=== PATIENT | female | born 1940 | race African-American/Black ===

== ENCOUNTER 2016-12-08 09:14 | Emergency (ER) | payer MEDICARE, BC ==
[~2016-12-08] VITALS: Ht 137.2 cm; Wt 77.0 kg
[~2016-12-08 09:14] MED LIST: AMLO5TAB4 PO; ATOR10TA PO; CARI350T PO; CHOL100026 PO; COR25 PO; DOCU100T9 PO; HYDR-519 PO; IBUP-1510 PO; LEVO100T9 PO; TIMO15DR12 EACHEYE; albuterol; mvi PO
[2016-12-08 17:58] VITALS: BP 135/79
== END 2016-12-08 11:23 | disposition home or self-care (01) ==
LOC: ER 09:50
DX: R05 Cough (principal); I10 Essential (primary) hypertension; E78.00 Pure hypercholesterolemia, unspecified; K21.9 Gastro-esophageal reflux disease without esophagitis
CPT/HCPCS: 71010; 99283

== ENCOUNTER 2018-04-21 15:54 | Inpatient (IN) | payer MEDICARE, BC ==
[~2018-04-21] VITALS: Ht 152.4 cm; Wt 73.9 kg
[~2018-04-21 15:54] MED LIST changes: +ALBU4TAB6 NEB; +ASPI-986 PO; -CARI350T PO; -CHOL100026 PO; +CHOL100044 PO; +DOCU-150 MT; +FERR325T6 MT; +HYDR-4135 MT; -IBUP-1510 PO; +IBUP-2030 PO; +LEVO112T7 MT; +LOSA100T3 PO; +S350 PO; +TIMO5DRO32 EACHEYE; -albuterol; +albuterol INH
[2018-04-21] MEDS ORDERED: ACETAMINOPHEN 650MG/20.3ML UDC PO ONE (16:45)
[2018-04-21] MEDS ORDERED: ALBUTEROL (0.083%) 2.5MG/3ML NEB HHN STA (16:45)
[2018-04-21 17:21] LABS: BASOPHILS % 0.4 % (0.0-2.0); HEMATOCRIT. 31.4 % (36.0-48.0); HEMOGLOBIN. 10.2 g/dL (12.0-16.0); LYMPHOCYTES % 15.8 % (20.0-50.0); MEAN CORPUSCULAR HEMOGLOBIN 28.8 pg (28.0-32.0); MEAN CORPUSCULAR VOLUME 88.5 fL (81.0-99.0); MEAN PLATELET VOLUME 7.8 fl (7.4-10.4); MONOCYTES % 5.6 % (2.0-8.0); NEUTROPHILS % 77.2 % (40.0-76.0); PLATELET 201 x1000/uL (130-400); RED BLOOD CELL COUNT 3.55 mill/uL (4.2-5.4); RED CELL DISTRIBUTION WIDTH 15.3 % (11.6-14.6)
[2018-04-21 17:26] LABS: CHLORIDE 106 mEq/L (98-107)
[2018-04-21 18:35] LABS: CLARITY URINE CLOUDY (CLEAR); COLOR URINE YELLOW (YELLOW); KETONES URINE NEGATIVE (NEGATIVE); LEUKOCYTE ESTERASE URINE 1+ (NEGATIVE); NITRITE URINE NEGATIVE (NEGATIVE); OCCULT BLOOD URINE NEGATIVE (NEGATIVE); PROTEIN URINE NEGATIVE (NEGATIVE); SPECIFIC GRAVITY URINE 1.017 (1.005-1.030); UROBILINOGEN URINE 0.2 E.U./dL (0.2-1.0)
[2018-04-21] MEDS ORDERED: SODIUM CHLORIDE 0.9% 1,000 ML IV ONE (20:22)
[2018-04-21] MEDS ORDERED: CEFTRIAXONE 1 G PREMIX 50 ML IV ONE (20:30)
[2018-04-21] MEDS ORDERED: AZITHROMYCIN 500 MG in DEXT 5% WATER 250 ML IV ONE (20:30)
[2018-04-21] MEDS ORDERED: ACETAMINOPHEN 325MG TABLET PO PRN (23:15)
[2018-04-21] MEDS ORDERED: GUAIFENESIN 200MG/10ML SUGAR FREE UDC PO PRN (23:15)
[2018-04-21] MEDS ORDERED: METHYLPREDNISOLONE SOD SUCC 125 MG/2 ML VIAL IV SCH (23:15)
[2018-04-21] MEDS ORDERED: MAGNESIUM/ALUMINUM HYDROXIDE/SIMETHICONE 30ML UDC PO PRN (23:15)
[2018-04-21] MEDS ORDERED: ONDANSETRON HCL 4MG/2ML INJ IV PRN (23:15)
[2018-04-21] MEDS ORDERED: HYDROCODONE/ACETAMINOPHEN 5/325MG TABLET PO PRN (23:15)
[2018-04-21] MEDS ORDERED: CLONIDINE 0.1MG TABLET PO PRN (23:15)
[2018-04-21] MEDS ORDERED: IPRATROPIUM/ALBUTEROL 0.5-3(2.5)MG/3ML NEB INH PRN (23:15)
[2018-04-21] MEDS ORDERED: DOCUSATE SODIUM 100MG CAPSULE PO PRN (23:15)
[2018-04-21] MEDS ORDERED: HYDROCODONE/ACETAMINOPHEN 10/325MG TABLET PO PRN (23:15)
[2018-04-21] MEDS ORDERED: DIPHENHYDRAMINE 50MG/ML VIAL IV PRN (23:15)
[2018-04-22] VITALS (7 sets, daily range): BP systolic 124–148; BP diastolic 60–75
[2018-04-22] MEDS ORDERED: TRAM150C25 PO (00:39)
[2018-04-22] MEDS ORDERED: BIMA2.5D4 EACHEYE (00:39)
[2018-04-22] MEDS ORDERED: METHYLPREDNISOLONE SOD SUCC 125 MG/2 ML VIAL IV SCH (01:45)
[2018-04-22 07:09] LABS: BASOPHILS % 0.2 % (0.0-2.0); EOSINOPHILS % 0.2 % (0.0-5.0); HEMATOCRIT. 30.2 % (36.0-48.0); LYMPHOCYTES % 10.8 % (20.0-50.0); MEAN CORPUSCULAR HEMOGLOBIN 29.3 pg (28.0-32.0); MEAN CORPUSCULAR VOLUME 88.6 fL (81.0-99.0); MEAN PLATELET VOLUME 7.8 fl (7.4-10.4); NEUTROPHILS % 86.8 % (40.0-76.0); PLATELET 189 x1000/uL (130-400); RED BLOOD CELL COUNT 3.41 mill/uL (4.2-5.4); RED CELL DISTRIBUTION WIDTH 15.3 % (11.6-14.6)
[2018-04-22 07:35] LABS: CHLORIDE 106 mEq/L (98-107)
[2018-04-22 07:56] LABS: PHOSPHORUS 2.2 mg/dL (2.5-4.9)
[2018-04-22 07:57] LABS: LDL CHOLESTEROL 78 mg/dL (5-100)
[2018-04-22 07:59] LABS: HDL CHOLESTEROL 33 mg/dL (40-59); T4 FREE 0.97 ng/dL (0.76-1.46)
[2018-04-22] MEDS: ENOXAPARIN 40MG/0.4ML SYR SUBCUT SCH (09:53)
[2018-04-22] MEDS ORDERED: REGADENOSON 0.4 MG/5 ML IV NR (11:15)
[2018-04-22] MEDS ORDERED: TRAMADOL 50MG TABLET PO PRN (11:15)
[2018-04-22] MEDS ORDERED: CARISOPRODOL 350 MG TABLET PO SCH (11:15)
[2018-04-22] MEDS: FERROUS SULFATE 325MG TABLET PO SCH ×2 (13:15→16:51)
[2018-04-22] MEDS: LOSARTAN POTASSIUM 100 MG TABLET PO SCH (13:15)
[2018-04-22] MEDS: LEVOTHYROXINE SODIUM 100MCG TABLET PO SCH (13:16)
[2018-04-22] MEDS: ASPIRIN 325MG EC TABLET PO SCH (13:16)
[2018-04-22] MEDS: AMLODIPINE 5MG TABLET PO SCH (13:16)
[2018-04-22] MEDS ORDERED: LEVOFLOXACIN 750MG PREMIX 150 ML IV SCH (16:30)
[2018-04-22] MEDS ORDERED: VANCOMYCIN 1250MG in DEXTROSE 5% WATER 250ML IV NR (17:00)
[2018-04-22] MEDS ORDERED: DEXTROSE 50% WATER 50ML SYRINGE IV PRN ×2 (19:15→20:45)
[2018-04-22] MEDS ORDERED: BLOOD SUGAR DIAGNOSTIC STRIP TEST SCH (21:00)
[2018-04-22] MEDS: BLOOD SUGAR DIAGNOSTIC STRIP TEST SCH (21:08)
[2018-04-22] MEDS: INSULIN LISPRO 100 UNITS/ML SUBCUT SCH (21:14)
[2018-04-22] MEDS: LATANOPROST 0.005% OPHTH DROPS 2.5ML BOTHEYE SCH (23:05)
[2018-04-23 00:22] VITALS: BP 120/56
[2018-04-23 04:00] VITALS: BP 137/59
[2018-04-23] MEDS: IPRATROPIUM/ALBUTEROL 0.5-3(2.5)MG/3ML NEB HHN SCH ×4 (04:17→21:37)
[2018-04-23] MEDS: LEVOTHYROXINE SODIUM 100MCG TABLET PO SCH (06:16)
[2018-04-23] MEDS: BLOOD SUGAR DIAGNOSTIC STRIP TEST SCH ×4 (06:19→20:04)
[2018-04-23] MEDS: INSULIN LISPRO 100 UNITS/ML SUBCUT SCH (07:45)
[2018-04-23] MEDS: FERROUS SULFATE 325MG TABLET PO SCH ×3 (07:50→17:51)
[2018-04-23] MEDS: ASPIRIN 325MG EC TABLET PO SCH (09:00)
[2018-04-23] MEDS: ATORVASTATIN CALCIUM 10MG TABLET PO SCH (09:00)
[2018-04-23] MEDS: AMLODIPINE 5MG TABLET PO SCH (09:00)
[2018-04-23] MEDS: LOSARTAN POTASSIUM 100 MG TABLET PO SCH (09:00)
[2018-04-23 09:19] VITALS: BP 149/72
[2018-04-23] MEDS: VANCOMYCIN 750 MG PREMIX 150 ML IV SCH (10:00)
[2018-04-23] MEDS: ENOXAPARIN 40MG/0.4ML SYR SUBCUT SCH (10:01)
[2018-04-23] MEDS ORDERED: REGADENOSON 0.4 MG/5 ML IV ONE (12:41)
[2018-04-23 12:47] VITALS: BP 134/68
[2018-04-23] MEDS ORDERED: CEFTRIAXONE 2 G PREMIX 50 ML IV SCH (14:15)
[2018-04-23] MEDS: CEFTRIAXONE 2 G in DEXTROSE 5% WATER 50 ML IV SCH (16:31)
[2018-04-23 16:54] VITALS: BP 125/66
[2018-04-23 20:00] VITALS: BP 127/71
[2018-04-23] MEDS: LATANOPROST 0.005% OPHTH DROPS 2.5ML BOTHEYE SCH (20:04)
[2018-04-23] MEDS ORDERED: LEVOFLOXACIN 500MG TABLET PO SCH (21:00)
[2018-04-24] VITALS: BP 128/64
[2018-04-24] MEDS: VANCOMYCIN 750 MG PREMIX 150 ML IV SCH (02:12)
[2018-04-24] MEDS: IPRATROPIUM/ALBUTEROL 0.5-3(2.5)MG/3ML NEB HHN SCH ×4 (03:41→20:27)
[2018-04-24 04:00] VITALS: BP 137/63
[2018-04-24] MEDS: LEVOTHYROXINE SODIUM 100MCG TABLET PO SCH (06:20)
[2018-04-24] MEDS: BLOOD SUGAR DIAGNOSTIC STRIP TEST SCH ×4 (06:20→20:41)
[2018-04-24 07:52] LABS: BASOPHILS % 0.3 % (0.0-2.0); EOSINOPHILS % 0.7 % (0.0-5.0); HEMATOCRIT. 29.4 % (36.0-48.0); HEMOGLOBIN. 9.9 g/dL (12.0-16.0); LYMPHOCYTES % 27.4 % (20.0-50.0); MEAN CORPUSCULAR HEMOGLOBIN 29.4 pg (28.0-32.0); MEAN CORPUSCULAR VOLUME 87.2 fL (81.0-99.0); MEAN PLATELET VOLUME 7.8 fl (7.4-10.4); MONOCYTES % 5.8 % (2.0-8.0); NEUTROPHILS % 65.8 % (40.0-76.0); PLATELET 229 x1000/uL (130-400); RED BLOOD CELL COUNT 3.37 mill/uL (4.2-5.4); RED CELL DISTRIBUTION WIDTH 15.2 % (11.6-14.6)
[2018-04-24 08:00] VITALS: BP 128/75
[2018-04-24] MEDS: ATORVASTATIN CALCIUM 10MG TABLET PO SCH (09:18)
[2018-04-24] MEDS: FERROUS SULFATE 325MG TABLET PO SCH ×3 (09:18→18:59)
[2018-04-24] MEDS: ASPIRIN 325MG EC TABLET PO SCH (09:18)
[2018-04-24] MEDS: AMLODIPINE 5MG TABLET PO SCH (09:19)
[2018-04-24] MEDS: LOSARTAN POTASSIUM 100 MG TABLET PO SCH (09:19)
[2018-04-24] MEDS: ENOXAPARIN 40MG/0.4ML SYR SUBCUT SCH (09:20)
[2018-04-24 12:00] VITALS: BP 127/67
[2018-04-24 15:59] LABS: CHLORIDE 104 mEq/L (98-107)
[2018-04-24 16:00] VITALS: BP 133/64
[2018-04-24] MEDS: CEFTRIAXONE 2 G in DEXTROSE 5% WATER 50 ML IV SCH (16:49)
[2018-04-24 18:03] LABS: BASOPHILS % 0.4 % (0.0-2.0); EOSINOPHILS % 2.2 % (0.0-5.0); HEMATOCRIT. 31.2 % (36.0-48.0); HEMOGLOBIN. 10.4 g/dL (12.0-16.0); LYMPHOCYTES % 33.4 % (20.0-50.0); MEAN CORPUSCULAR HEMOGLOBIN 28.9 pg (28.0-32.0); MEAN CORPUSCULAR VOLUME 87.1 fL (81.0-99.0); MEAN PLATELET VOLUME 7.4 fl (7.4-10.4); PLATELET 243 x1000/uL (130-400); RED BLOOD CELL COUNT 3.58 mill/uL (4.2-5.4); RED CELL DISTRIBUTION WIDTH 15.3 % (11.6-14.6)
[2018-04-24] MEDS: LATANOPROST 0.005% OPHTH DROPS 2.5ML BOTHEYE SCH (20:41)
[2018-04-24 20:44] VITALS: BP 133/70
[2018-04-25 01:01] VITALS: BP 124/73
[2018-04-25] MEDS: IPRATROPIUM/ALBUTEROL 0.5-3(2.5)MG/3ML NEB HHN SCH ×4 (01:29→21:23)
[2018-04-25 04:55] VITALS: BP 136/69
[2018-04-25] MEDS: LEVOTHYROXINE SODIUM 100MCG TABLET PO SCH (06:03)
[2018-04-25] MEDS: FERROUS SULFATE 325MG TABLET PO SCH ×3 (06:04→17:04)
[2018-04-25] MEDS: BLOOD SUGAR DIAGNOSTIC STRIP TEST SCH ×4 (06:04→21:30)
[2018-04-25 06:40] LABS: BASOPHILS % 0.6 % (0.0-2.0); EOSINOPHILS % 3.5 % (0.0-5.0); HEMATOCRIT. 30.3 % (36.0-48.0); HEMOGLOBIN. 10.2 g/dL (12.0-16.0); LYMPHOCYTES % 36.4 % (20.0-50.0); MEAN CORPUSCULAR HEMOGLOBIN 29.8 pg (28.0-32.0); MEAN CORPUSCULAR VOLUME 88.5 fL (81.0-99.0); MEAN PLATELET VOLUME 7.8 fl (7.4-10.4); MONOCYTES % 7.8 % (2.0-8.0); NEUTROPHILS % 51.7 % (40.0-76.0); PLATELET 238 x1000/uL (130-400); RED BLOOD CELL COUNT 3.42 mill/uL (4.2-5.4); RED CELL DISTRIBUTION WIDTH 15.2 % (11.6-14.6)
[2018-04-25 07:19] LABS: CHLORIDE 105 mEq/L (98-107)
[2018-04-25 07:58] VITALS: BP 132/75
[2018-04-25] MEDS: LOSARTAN POTASSIUM 100 MG TABLET PO SCH (10:49)
[2018-04-25] MEDS: AMLODIPINE 5MG TABLET PO SCH (10:49)
[2018-04-25] MEDS: ASPIRIN 325MG EC TABLET PO SCH (10:49)
[2018-04-25] MEDS: ATORVASTATIN CALCIUM 10MG TABLET PO SCH (10:49)
[2018-04-25] MEDS: ENOXAPARIN 40MG/0.4ML SYR SUBCUT SCH (10:50)
[2018-04-25 12:00] VITALS: BP 135/73
[2018-04-25] MEDS ORDERED: LIDOCAINE HCL 1% 20ML VIAL (Pyxis) INJ ONE (13:11)
[2018-04-25 16:01] VITALS: BP 135/82
[2018-04-25] MEDS: CEFTRIAXONE 2 G in DEXTROSE 5% WATER 50 ML IV SCH (17:05)
[2018-04-25] MEDS ORDERED: CARISOPRODOL 350 MG TABLET PO PRN (21:00)
[2018-04-25 21:28] VITALS: BP 146/88
[2018-04-25] MEDS: LATANOPROST 0.005% OPHTH DROPS 2.5ML BOTHEYE SCH (21:30)
[2018-04-26 00:39] VITALS: BP 142/74
[2018-04-26] MEDS: IPRATROPIUM/ALBUTEROL 0.5-3(2.5)MG/3ML NEB HHN SCH ×3 (01:36→14:44)
[2018-04-26 05:02] VITALS: BP 113/65
[2018-04-26] MEDS: BLOOD SUGAR DIAGNOSTIC STRIP TEST SCH ×3 (06:32→17:35)
[2018-04-26 06:50] LABS: BASOPHILS % 0.5 % (0.0-2.0); EOSINOPHILS % 4.1 % (0.0-5.0); HEMATOCRIT. 31.1 % (36.0-48.0); HEMOGLOBIN. 10.3 g/dL (12.0-16.0); MEAN CORPUSCULAR HEMOGLOBIN 29.2 pg (28.0-32.0); MEAN CORPUSCULAR VOLUME 87.6 fL (81.0-99.0); MEAN PLATELET VOLUME 7.1 fl (7.4-10.4); MONOCYTES % 6.7 % (2.0-8.0); NEUTROPHILS % 57.7 % (40.0-76.0); PLATELET 239 x1000/uL (130-400); RED BLOOD CELL COUNT 3.54 mill/uL (4.2-5.4); RED CELL DISTRIBUTION WIDTH 15.2 % (11.6-14.6)
[2018-04-26 07:15] LABS: CHLORIDE 104 mEq/L (98-107)
[2018-04-26 07:27] VITALS: BP 149/73
[2018-04-26] MEDS: ENOXAPARIN 40MG/0.4ML SYR SUBCUT SCH (10:02)
[2018-04-26] MEDS: LEVOTHYROXINE SODIUM 100MCG TABLET PO SCH (10:03)
[2018-04-26] MEDS: ATORVASTATIN CALCIUM 10MG TABLET PO SCH (10:03)
[2018-04-26] MEDS: AMLODIPINE 5MG TABLET PO SCH (10:03)
[2018-04-26] MEDS: LOSARTAN POTASSIUM 100 MG TABLET PO SCH (10:03)
[2018-04-26] MEDS: FERROUS SULFATE 325MG TABLET PO SCH ×3 (10:03→17:50)
[2018-04-26] MEDS: ASPIRIN 325MG EC TABLET PO SCH (10:04)
[2018-04-26 12:00] VITALS: BP 125/59
[2018-04-26] MEDS: CEFTRIAXONE 2 G in DEXTROSE 5% WATER 50 ML IV SCH (15:28)
[2018-04-26 15:50] VITALS: BP 126/66
[2018-04-26 17:38] VITALS: BP 126/66
== END 2018-04-26 18:50 | disposition home health service (06) | DRG 871 ==
LOC: ER 17:31 → 6WST 21:00 → EDBEDREQ 21:03 → EDBEDREQTM 21:03 → EDBEDREQSVC 21:03 → ENRESERV 22:08
PROVIDERS: ADMIT Family Medicine Adult Medicine; ATTEND Family Medicine Adult Medicine
PROC: 05HY33Z Insertion of Infusion Device into Upper Vein, Percutaneous Approach (ICD-10-PCS; principal; 2018-04-25)
DX: A41.51 Sepsis due to Escherichia coli [E. coli] (principal); J18.9 Pneumonia, unspecified organism; N39.0 Urinary tract infection, site not specified; I20.9 Angina pectoris, unspecified; E03.9 Hypothyroidism, unspecified; I11.0 Hypertensive heart disease with heart failure; D64.9 Anemia, unspecified; E78.5 Hyperlipidemia, unspecified; E11.51 Type 2 diabetes mellitus with diabetic peripheral angiopathy without gangrene; E78.00 Pure hypercholesterolemia, unspecified; H40.9 Unspecified glaucoma; I50.9 Heart failure, unspecified; K21.9 Gastro-esophageal reflux disease without esophagitis; Z96.611 Presence of right artificial shoulder joint; Z96.612 Presence of left artificial shoulder joint; E66.9 Obesity, unspecified; K57.90 Diverticulosis of intestine, part unspecified, without perforation or abscess without bleeding; M25.511 Pain in right shoulder; M25.512 Pain in left shoulder; R26.9 Unspecified abnormalities of gait and mobility; Z79.82 Long term (current) use of aspirin; Z79.899 Other long term (current) drug therapy; Z79.1 Long term (current) use of non-steroidal anti-inflammatories (NSAID); Z68.31 Body mass index [BMI] 31.0-31.9, adult
CPT/HCPCS: 36415; 36569; 71045; 76937; 78452; 80048; 80061; 82962; 83036; 83605; 83735; 83880; 84100; 84145; 84439; 84443; 84484; 85651; 86140; 87070; 87077; 87186; 87804; 93005; 93017; 93306; 93970; 94640; 96365; 96367; 97116; 97162; 97166; 97530; 97535; 99291; A9500; C1725; J0456; J0696; J1650; J1815; J1956; J2785; J2930; J3370; J3490; J7030; J7050; J7060; J7611; J7620

== ENCOUNTER → 2019-01-07 | Outpatient (CLI) | payer MEDICARE, BC ==
[~2019-01-07] MED LIST changes: -ALBU4TAB6 NEB; +BIMA2.5D4 EACHEYE; -CHOL100044 PO; -DOCU-150 MT; -HYDR-519 PO; -IBUP-2030 PO; -LEVO112T7 MT; -TIMO15DR12 EACHEYE; -TIMO5DRO32 EACHEYE; +TRAM150C25 PO
[2019-01-07 13:49] LABS: BG BASE EXCESS -1.8 mmol/L (-2.0-2.0); BG CARBOXYHEMOGLOBIN 0.2 % (0.5-1.5); BG DEOXYHEMOGLOBIN 4.9 % (0.0-5.0); BG FRACTION INSPIRED OXYGEN 21; BG HCO3 ACT 23.7 mmol/L (22.0-26.0); BG METHEMOGLOBIN 0.3 % (0.0-1.5); BG OXYGEN SATURATION 95.1 % (92.0-98.5); BG OXYHEMOGLOBIN 94.6 % (94.0-97.0); BG PCO2 43.1 mmHg (35.0-45.0); BG PH 7.358 (7.350-7.450); BG SAMPLE SITE RIGHT BRACHIAL; BG TOTAL HEMOGLOBIN 11.8 g/dL (12.0-18.0); BG VENT MODE ROOM AIR
== END | disposition home or self-care (01) ==
LOC: PF 13:16
PROVIDERS: ATTEND Internal Medicine Pulmonary Disease
DX: J44.9 Chronic obstructive pulmonary disease, unspecified (principal)
CPT/HCPCS: 36600; 82375; 82805

== ENCOUNTER → 2019-01-11 | Outpatient (CLI) | payer MEDICARE, BC ==
[~2019-01-11] MED LIST changes: +CARI-166 PO; -S350 PO
== END | disposition home or self-care (01) ==
LOC: RAD 09:05
PROVIDERS: ATTEND Internal Medicine Pulmonary Disease
DX: J44.9 Chronic obstructive pulmonary disease, unspecified (principal); I51.7 Cardiomegaly; M41.80 Other forms of scoliosis, site unspecified; M47.819 Spondylosis without myelopathy or radiculopathy, site unspecified
CPT/HCPCS: 71046

== ENCOUNTER → 2020-04-22 | Outpatient (CLI) | payer MEDICARE, BC ==
[~2020-04-22] MED LIST changes: -CARI-166 PO; +CARI350T28 PO
== END | disposition home or self-care (01) ==
LOC: LAB 12:12
PROVIDERS: ATTEND Internal Medicine Pulmonary Disease
DX: Z20.828 Contact with and (suspected) exposure to other viral communicable diseases (principal)
CPT/HCPCS: C9803; U0003

== ENCOUNTER → 2020-04-24 | Outpatient (CLI) | payer MEDICARE, BC ==
[~2020-04-24] MED LIST changes: +ALBUTEROL INHALER INH; +AMLO5TAB88 PO; +ASPI-1497 PO; +ATOR10TA69 PO; +CARI250T PO; +CARV25TA47 PO; +CYCL30DR BOTHEYE; +DOCU100T PO; +FERR325T23 PO; +FLUT1BLS INH; +FLUT9.9S BOTHNSTRLS; +HYDR-4135 PO; +LATA2.5D2 BOTHEYE; +LOSA100T32 PO; +MULT-1116 PO; +SPECTRAVITE PO; +TRAM50TA3 PO
[2020-04-24 14:41] LABS: BG BASE EXCESS -2.2 mmol/L (-2.0-2.0); BG CARBOXYHEMOGLOBIN 0.1 % (0.5-1.5); BG DEOXYHEMOGLOBIN 4.3 % (0.0-5.0); BG FRACTION INSPIRED OXYGEN 21; BG OXYGEN SATURATION 95.7 % (92.0-98.5); BG OXYHEMOGLOBIN 95.6 % (94.0-97.0); BG PCO2 40.8 mmHg (35.0-45.0); BG PH 7.368 (7.350-7.450); BG PO2 82.1 mmHg (75.0-100.0); BG SAMPLE SITE RIGHT BRACHIAL; BG TOTAL HEMOGLOBIN 11.6 g/dL (12.0-18.0); BG VENT MODE ROOM AIR
== END | disposition home or self-care (01) ==
LOC: PF 13:10
PROVIDERS: ATTEND Internal Medicine Pulmonary Disease
DX: J45.909 Unspecified asthma, uncomplicated (principal); G47.33 Obstructive sleep apnea (adult) (pediatric); R06.09 Other forms of dyspnea
CPT/HCPCS: 36600; 82375; 82805; 94060; 94727; 94729

== ENCOUNTER → 2020-04-29 | Outpatient (CLI) | payer MEDICARE, BC | END | disposition home or self-care (01) | LOC: LAB 06:49 | PROVIDERS: ATTEND Surgery | DX: Z01.812 Encounter for preprocedural laboratory examination (principal); Z20.828 Contact with and (suspected) exposure to other viral communicable diseases | CPT/HCPCS: 87426 ==

== ENCOUNTER → 2023-02-24 | Outpatient (CLI) | payer MEDICARE, BC, MEDICAID ==
[~2023-02-24] MED LIST changes: -AMLO5TAB4 PO; -ASPI-986 PO; -ATOR10TA PO; -CARI350T28 PO; -COR25 PO; -DOCU100T9 PO; -FERR325T6 MT; -HYDR-4135 MT; +IOHEXOL-350 100 ML BOTTLE ONE; +LATA2.5D14 BOTHEYE; -LATA2.5D2 BOTHEYE; -LOSA100T3 PO; -LOSA100T32 PO; +LOSA100T33 PO; -TRAM150C25 PO; -albuterol INH; -mvi PO
== END | disposition home or self-care (01) ==
LOC: CT 09:45
PROVIDERS: ATTEND Internal Medicine Critical Care Medicine
DX: I26.99 Other pulmonary embolism without acute cor pulmonale (principal); R06.02 Shortness of breath
CPT/HCPCS: 71275; Q9967